=== PATIENT | male | born 1955 | race Caucasian/White ===

== ENCOUNTER → 2017-12-10 | Outpatient (CLI) | payer OTHER ==
[~2017-12-10] MED LIST: ASPI1TAB69 PO; ATOR40TA16 PO; LISI-587 PO; METO50TA PO
--- NOTE | 2017-12-10 14:23 | RADRPT ---
EXAM DATE/TIME: 12/10/2017 13:04 [facility] COMPARISON: No previous studies available for comparison. INDICATIONS : Pain under right breast. MEDICAL HISTORY : None. SURGICAL HISTORY : CABG. ENCOUNTER: Initial ACUITY: 2 days PAIN SCORE: 2/10 LOCATION: Right abdomen FINDINGS: No bowel obstruction, ileus or perforation is noted. Gallstones are noted. Tiny 3 mm calcified densit y is noted within the left kidney consistent with probable renal calculus. Degenerative changes and s coliosis of the lumbar spine are noted. CONCLUSION: 1. 3 mm calcified density is noted within the left kidney consistent with probable renal calculus. 2. Gallstones. 3. No bowel obstruction, ileus or perforation. 4. Degenerative changes and scoliosis of the thoracolumbar spine. Fausto Proctor MD on December 10, 2017 at 14:04 Board Certified Radiologist. This report was verified electronically.
--- NOTE | 2017-12-10 14:24 | RADRPT ---
EXAM DATE/TIME: 12/10/2017 13:01 [facility] COMPARISON: No previous studies available for comparison. INDICATIONS : Pain under right breast MEDICAL HISTORY : None. SURGICAL HISTORY : CABG. ENCOUNTER: Initial ACUITY: 2 days PAIN SCORE: 2/10 LOCATION: Right chest FINDINGS: The cardiac silhouette is enlarged in transverse diameter. The lungs are free of acute parenchymal op acity. No effusions are identified. Median sternotomy wires are present. There is mild multilevel de generative change throughout the spine. CONCLUSION: Cardiomegaly. No acute pulmonary disease. Ethan Presley MD on December 10, 2017 at 14:08 Board Certified Radiologist. This report was verified electronically.
== END ==
LOC: HRAD 12:30
PROVIDERS: ATTEND Family Medicine
DX: R10.10 Upper abdominal pain, unspecified (principal)
CPT/HCPCS: 71046; 74019